=== PATIENT | female | born 1950 ===

== ENCOUNTER → 2018-04-29 | Outpatient (CLI) | payer MEDICARE, OTHER ==
--- NOTE | 2018-04-29 18:03 | RADIOLOGY IMAGING REPORT ---
FACILITY: [facility] PATIENT NAME: Bruno Armas : 1950 MR: [id number] V: [id number] EXAM DATE: ORDERING PHYSICIAN: RAHEEM ALVAREZ TECHNOLOGIST: Location: [facility] [place] Patient: Bruno Armas : 1950 Visit/Account:[id number] Date of Sevice: 04/29/2018 2 VIEWS CHEST INDICATION: Cough. COPD. History smoking. COMPARISON: None available FINDINGS: Cardiomediastinal silhouette within normal limits. The proximal pulmonary arteries are prominent with distal tapering. Lungs show mild emphysematous changes. Postfracture change seen in the left apex without discrete nod ule. No focal areas of consolidation. There is no pneumothorax or pleural effusion. No nodule. Chronic interstitial changes. Upper abdomen is unremarkable. No acute bony abnormality. IMPRESSION: 1. No acute cardiopulmonary process. Chronic changes as above. 2. Prominent central pulmonary arteries with distal tapering. This is nonspecific but could be due to pulmonary artery hypertension. Report Dictated By: Guillermo Parker at 04/29/2018 5:58 PM Report E-Signed By: Guillermo Parker at 04/29/2018 6:00 PM WSN:[id number]
--- NOTE | 2018-04-29 18:23 | RADIOLOGY IMAGING REPORT ---
FAC[place] [facility] [place]IENT NAME: Bruno Armas : 1950 MR: [id number] V: [id number] EXAM DATE: ORDERING PHYSICIAN: RAHEEM ALVRAEZ TECHNOLOGIST: Location: [facility] - [place] Patient: Bruno Armas : 1950 Visit/Account:[id number] Date of Sevice: 04/29/2018 HIPS BILATERAL HISTORY: Right hip pain COMPARISON: None. FINDINGS: Osseous alignment is anatomic in the pelvis. No fracture or destructive osseous process. There is lai y mild degenerative narrowing in the bilateral hips without fracture or destructive osseous process. No significant spurring. No enthesopathy. IMPRESSION: Mild degenerative narrowing bilateral hips. No acute bony finding Report Dictated By: Adablerto Lindsey MD at 04/29/2018 6:18 PM Report E-Signed By: Adalberto Lindsey MD at 04/29/2018 6:20 PM WSN:[id number]
== END ==
LOC: RAD 17:08
PROVIDERS: ATTEND Family Medicine
DX: M16.0 Bilateral primary osteoarthritis of hip (principal); R91.8 Other nonspecific abnormal finding of lung field
CPT/HCPCS: 71046; 73522

== ENCOUNTER → 2018-04-29 | Outpatient (REF) | payer MEDICARE | LOC: ZZSENDIN 15:43 | PROVIDERS: ATTEND Family Medicine | DX: R09.02 Hypoxemia (principal); I50.9 Heart failure, unspecified | CPT/HCPCS: 83880 ==